=== PATIENT | male | born 1995 | race Two or more races ===

== ENCOUNTER 2022-01-02 18:22 | Emergency (ER) | payer SELFPAY ==
[~2022-01-02] VITALS: Ht 165.1 cm; Wt 90.7 kg
[2022-01-02 18:25] VITALS: BP 130/89
== END 2022-01-02 20:27 | disposition left against medical advice (07) ==
LOC: ER 18:22
DX: Z76.0 Encounter for issue of repeat prescription (principal); Z53.21 Procedure and treatment not carried out due to patient leaving prior to being seen by health care provider